=== PATIENT | female | born 1950 | race African-American/Black ===

== ENCOUNTER → 2016-07-30 | Outpatient (CLI) | payer MEDICARE, OTHER | LOC: RAD 11:33 | PROVIDERS: ATTEND Internal Medicine Gastroenterology | DX: K59.01 Slow transit constipation (principal); R14.0 Abdominal distension (gaseous) | CPT/HCPCS: 74000 ==

== ENCOUNTER → 2016-12-14 | Outpatient (CLI) | payer MEDICARE, OTHER ==
--- NOTE | 2016-12-14 14:51 | RADIOLOGY REPORT (SQ) ---
EXAM DESCRIPTION: CT ABD/PELVIS NO ORAL OR IV COMPLETED DATE/TIME: 12/14/2016 1:34 pm REASON FOR STUDY: LOWER ABD PAIN (R10.30) R10.30 LOWER ABDOMINAL PAIN, UNSPECIFIED COMPARISON: None. TECHNIQUE: CT scan of the abdomen and pelvis performed without intravenous or oral contrast. Images reviewed with lung, soft tissue, and bone windows. Reconstructed coronal and sagittal MPR images revi ewed. All images stored on PACS. All CT scanners at this facility use dose modulation, iterative reconstruction, and/or weight based d osing when appropriate to reduce radiation dose to as low as reasonably achievable (ALARA). [facility]: Dose Right [facility]: CareDose [facility]: Dose Right [facility]: Teradose 4D [facility]: [employer] RADIATION DOSE: Up-to-date CT equipment and radiation dose reduction techniques were employed. CTDIv ol: 15.7 mGy. DLP: 784 mGy-cm.mGy. LIMITATIONS: None. FINDINGS: LOWER CHEST: No significant findings. No nodules or infiltrates. NON-CONTRASTED LIVER, SPLEEN, ADRENALS: Evaluation limited by lack of IV contrast. No identified sign ificant masses. PANCREAS: No masses. No peripancreatic inflammatory changes. GALLBLADDER: No identified stones by CT criteria. No inflammatory changes to suggest cholecystitis. RIGHT KIDNEY AND URETER: No suspicious masses. Assessment limited by lack of IV contrast. No signif icant calcifications. No hydronephrosis or hydroureter. LEFT KIDNEY AND URETER: No suspicious masses. Assessment limited by lack of IV contrast. No signifi cant calcifications. No hydronephrosis or hydroureter. AORTA AND RETROPERITONEUM: No aneurysm. No retroperitoneal masses or adenopathy. BOWEL AND PERITONEAL CAVITY: No obvious masses or inflammatory changes. No free fluid. APPENDIX: Normal. PELVIS, BLADDER, AND ABDOMINAL WALL:The urinary bladder is normal. The uterus is normal for age. Th ere is no adnexal mass or fluid collection. A small umbilical hernia contains only fat. BONES: No osseous lesions are seen. Posterior rods are present from L3-L5 with screws through the pe dicles. OTHER: No other significant finding. IMPRESSION: 1. There is no acute abnormality in the abdomen or pelvis. COMMENT: Quality ID # [id number]: Final reports with documentation of one or more dose reduction techniques (e.g., Automated exposure control, adjustment of the mA and/or kV according to patient size, use of iterative reconstruction technique) TECHNICAL DOCUMENTATION: JOB ID: [id number] [employer]- All Rights Reserved
== END ==
LOC: RAD 12:45
PROVIDERS: ATTEND Internal Medicine
DX: R10.30 Lower abdominal pain, unspecified (principal)
CPT/HCPCS: 74176

== ENCOUNTER → 2018-03-27 | Outpatient (CLI) | payer MEDICARE, OTHER ==
--- NOTE | 2018-03-27 14:38 | RADIOLOGY REPORT (SQ) ---
EXAM DESCRIPTION: CHEST PA/LATERAL COMPLETED DATE/TIME: 03/27/2018 2:08 pm REASON FOR STUDY: COUGH COMPARISON: None. EXAM PARAMETERS: NUMBER OF VIEWS: two views TECHNIQUE: Digital Frontal and Lateral radiographic views of the chest acquired. RADIATION DOSE: NA LIMITATIONS: none FINDINGS: LUNGS AND PLEURA: No opacities, masses or pneumothorax. No pleural effusion. MEDIASTINUM AND HILAR STRUCTURES: No masses or contour abnormalities. HEART AND VASCULAR STRUCTURES: Heart normal size. No evidence for failure. BONES: No acute findings. HARDWARE: None in the chest. OTHER: No other significant finding. IMPRESSION: 1. NO SIGNIFICANT RADIOGRAPHIC FINDING IN THE CHEST. TECHNICAL DOCUMENTATION: JOB ID: [id number] [employer]- All Rights Reserved Reading location - IP/workstation name: [email or web address]
--- NOTE | 2018-03-27 15:22 | RADIOLOGY REPORT (SQ) ---
EXAM DESCRIPTION: PARANASAL SINUSES COMPLETED DATE/TIME: 03/27/2018 2:08 pm REASON FOR STUDY: COUGH R05 COUGH COMPARISON: None. NUMBER OF VIEWS: Three views. TECHNIQUE: Images of the paranasal sinuses acquired. LIMITATIONS: None. FINDINGS: ORBITS: No fracture. No foreign body. SINUSES: No mucosal thickening. No air fluid levels. FACIAL BONES: No fracture. OTHER: Degenerative disc disease C4-C5. IMPRESSION: 1. NO PLAIN RADIOGRAPHIC EVIDENCE FOR SINUS DISEASE. TECHNICAL DOCUMENTATION: JOB ID: [id number] [employer]- All Rights Reserved Reading location - IP/workstation name: [email or web address]
== END ==
LOC: OD 13:31
PROVIDERS: ATTEND Internal Medicine
DX: R05 Cough (principal)
CPT/HCPCS: 70220; 71046

== ENCOUNTER → 2018-04-10 | Outpatient (CLI) | payer MEDICARE, OTHER ==
[2018-04-10 14:34] LABS: ABSOLUTE EOSINOPHILS # (AUTO) 0.5 10^3/uL (0.0-0.6); ABSOLUTE LYMPHOCYTES (AUTO) 1.2 10^3/uL (0.5-4.7); ABSOLUTE MONOCYTES (AUTO) 0.3 10^3/uL (0.1-1.4); ABSOLUTE NEUT (AUTO) 0.9 10^3/uL (1.7-8.2); BASOPHILS % (AUTO) 1.4 % (0-2); HEMATOCRIT 37.1 % (36.0-47.0); HEMOGLOBIN 11.9 g/dL (12.0-15.5); MEAN CORPUSCULAR HEMOGLOBIN 21.3 pg (27.0-33.4); MEAN CORPUSCULAR HGB CONC 32.1 g/dL (32.0-36.0); MEAN CORPUSCULAR VOLUME 66 fl (80-97); MONOCYTES % (AUTO) 9.2 % (3-13); PLATELET COUNT 229 10^3/uL (150-450); RED BLOOD COUNT 5.58 10^6/uL (3.72-5.28); RED CELL DISTRIBUTION WIDTH 15.6 % (11.5-14.0); SEGMENTED NEUTROPHILS % (AUTO) 32.4 % (42-78); TOTAL CELLS COUNTED % (AUTO) 100 %; WHITE BLOOD COUNT 2.9 10^3/uL (4.0-10.5)
[2018-04-10 14:52] LABS: ALANINE AMINOTRANSFERASE 24 U/L (9-52); ALBUMIN 3.9 g/dL (3.5-5.0); ALKALINE PHOSPHATASE 130 U/L (38-126); ANION GAP 5 (5-19); ASPARTATE AMINO TRANSFERASE 26 U/L (14-36); BILIRUBIN,DIRECT 0.1 mg/dL (0.0-0.4); BILIRUBIN,TOTAL 0.5 mg/dL (0.2-1.3); BLOOD UREA NITROGEN 25 mg/dL (7-20); CALCIUM 9.3 mg/dL (8.4-10.2); CARBON DIOXIDE 32 mmol/L (22-30); CHLORIDE 104 mmol/L (98-107); GLUCOSE 99 mg/dL (75-110); LIPASE 62.5 U/L (23-300); POTASSIUM 4.8 mmol/L (3.6-5.0); SODIUM 140.6 mmol/L (137-145)
[2018-04-10 15:00] LABS: FREE T4 (FREE THYROXINE) 0.92 ng/dL (0.78-2.19)
[2018-04-10 15:15] LABS: THYROID STIMULATING HORMONE 0.48 uIU/mL (0.47-4.68)
== END ==
LOC: LAB 14:04
PROVIDERS: ATTEND Internal Medicine Gastroenterology
DX: R07.9 Chest pain, unspecified (principal); R10.816 Epigastric abdominal tenderness; R10.812 Left upper quadrant abdominal tenderness; K59.01 Slow transit constipation
CPT/HCPCS: 36415; 80048; 80076; 83690; 84439; 84443; 85025

== ENCOUNTER → 2018-10-30 | Outpatient (CLI) | payer MEDICARE, OTHER ==
[~2018-10-30] MED LIST: DIAZEPAM 5 MG TABLET ONE
--- NOTE | 2018-10-30 14:18 | RADIOLOGY REPORT (SQ) ---
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 TECHNIQUE: Multiplanar imaging includes non-contrasted T1, T2, FLAIR, and diffusion with ADC map seq uences. Images stored on PACS. LIMITATIONS: None. FINDINGS: ANATOMY: No anomalies. Normal vascular flow voids. Pituitary fossa normal. CSF SPACES: Normal in size and contour. No hemorrhage. CEREBRUM: Sulci and gyri normal in size and contour. Minimal age appropriate spotty increased bifron alexsander and biparietal white matter signal on FLAIR imaging from chronic small vessel ischemic change. N o evidence of hemorrhage, mass, or extraaxial fluid collection. POSTERIOR FOSSA: No signal alteration. No hemorrhage. No edema, masses or mass effect. Internal wayne tory canals, cerebello-pontine angles, mastoids normal. DIFFUSION IMAGING: Negative for acute or sub-acute infarction. ORBITS: No masses. Globes normal. PARANASAL SINUSES: No fluid levels. Mucosa normal. OTHER: No other significant finding. IMPRESSION: ESSENTIALLY NORMAL MRI OF THE BRAIN WITHOUT INTRAVENOUS GADOLINIUM CONTRAST. EVIDENCE OF ACUTE STROKE: NO. TECHNICAL DOCUMENTATION: JOB ID: [id number] [employer]- All Rights Reserved Reading location - IP/workstation name: [email or web address]
== END ==
LOC: RAD 10-28 12:53
PROVIDERS: ATTEND Internal Medicine
DX: G46.4 Cerebellar stroke syndrome (principal)
CPT/HCPCS: 70551; A9270

== ENCOUNTER → 2019-05-11 | Outpatient (CLI) | payer MEDICARE, OTHER ==
--- NOTE | 2019-05-11 13:54 | RADIOLOGY REPORT (SQ) ---
EXAM DESCRIPTION: HAND BILATERAL 2 VIEWS COMPLETED DATE/TIME: 05/11/2019 1:38 pm REASON FOR STUDY: POLYARTHRITIS, UNSPECIFIED M13.0 POLYARTHRITIS, UNSPECIFIED COMPARISON: None. EXAM PARAMETERS: NUMBER OF VIEWS: Two views right hand. Two views left hand. TECHNIQUE: AP and lateral radiographic images acquired of bilateral hands. LIMITATIONS: None. FINDINGS: RIGHT HAND: MINERALIZATION: Normal. BONES: No acute fracture or dislocation. No worrisome bone lesions. No significant osteophytes. JOINTS: Degenerative changes most marked in the radiocarpal joint and 1st carpal/metacarpal joint. T here are subchondral cysts and joint space narrowing. There is subchondral sclerosis. SOFT TISSUES: No swelling. No calcifications. OTHER: No other significant finding. LEFT HAND: MINERALIZATION: Normal. BONES: No acute fracture or dislocation. No worrisome bone lesions. No significant osteophytes. JOINTS: Degenerative changes most marked in the radiocarpal joint and 1st carpal/metacarpal joint. T here are subchondral cysts and joint space narrowing. There is sub chondral sclerosis. SOFT TISSUES: No swelling. No calcifications. OTHER: No other significant finding. IMPRESSION: Osteoarthritic changes most marked in the radiocarpal joint and 1st carpal/metacarpal aroldo int bilaterally. TECHNICAL DOCUMENTATION: JOB ID: [id number] [employer]- All Rights Reserved Reading location - IP/workstation name: [email or web address]
--- NOTE | 2019-05-11 13:55 | RADIOLOGY REPORT (SQ) ---
EXAM DESCRIPTION: SHOULDER RIGHT 2 OR MORE VIEWS COMPLETED DATE/TIME: 05/11/2019 1:38 pm REASON FOR STUDY: POLYARTHRITIS, UNSPECIFIED M13.0 POLYARTHRITIS, UNSPECIFIED COMPARISON: None. NUMBER OF VIEWS: Two views. TECHNIQUE: AP and Y-view images acquired of the right shoulder. LIMITATIONS: None. FINDINGS: MINERALIZATION: Normal. BONES: No acute fracture. No worrisome bone lesions. JOINTS: No dislocation. VISUALIZED LUNGS AND RIBS: No pneumothorax. No rib fracture. SOFT TISSUES: No radiopaque foreign body. OTHER: No other significant finding. IMPRESSION: NEGATIVE STUDY OF THE RIGHT SHOULDER. NO RADIOGRAPHIC EVIDENCE OF ACUTE INJURY. TECHNICAL DOCUMENTATION: JOB ID: [id number] [employer]- All Rights Reserved Reading location - IP/workstation name: [email or web address]
--- NOTE | 2019-05-11 13:55 | RADIOLOGY REPORT (SQ) ---
EXAM DESCRIPTION: C SP 3 VWS OR LESS COMPLETED DATE/TIME: 05/11/2019 1:38 pm REASON FOR STUDY: POLYARTHRITIS, UNSPECIFIED M13.0 POLYARTHRITIS, UNSPECIFIED COMPARISON: None. NUMBER OF VIEWS: Three views. TECHNIQUE: AP, lateral and odontoid radiographic images acquired of the cervical spine. LIMITATIONS: None. FINDINGS: MINERALIZATION: Normal. ALIGNMENT: There is anterolisthesis of C3 on C4. Retrolisthesis of C4 on C5. VERTEBRAE: Vertebral bodies of normal height. DISCS: Disc space narrowing at C4-5 and C5-C6 to a lesser extent at C6-C7. Small anterior osteophyte s at the same levels. HARDWARE: None in the spine. SOFT TISSUES: No masses or calcifications. Lung apices clear. OTHER: No other significant finding. IMPRESSION: Multilevel spondylosis most marked at C4-5, C5-C6 and C6-C7. TECHNICAL DOCUMENTATION: JOB ID: [id number] [employer]- All Rights Reserved Reading location - IP/workstation name: [email or web address]
--- NOTE | 2019-05-11 13:56 | RADIOLOGY REPORT (SQ) ---
EXAM DESCRIPTION: KNEE LEFT 2 VIEWS COMPLETED DATE/TIME: 05/11/2019 1:38 pm REASON FOR STUDY: POLYARTHRITIS, UNSPECIFIED M13.0 POLYARTHRITIS, UNSPECIFIED COMPARISON: None. NUMBER OF VIEWS: Two views. TECHNIQUE: AP and lateral radiographic images acquired of the left knee. LIMITATIONS: None. FINDINGS: MINERALIZATION: Normal. BONES: No acute fracture or dislocation. No worrisome bone lesions. JOINT: No effusion. Mild joint space narrowing in all compartments. SOFT TISSUES: No soft tissue swelling. No radio-opaque foreign body. OTHER: No other significant finding. IMPRESSION: Mild osteoarthritic changes with joint space narrowing in all compartments. TECHNICAL DOCUMENTATION: JOB ID: [id number] [employer]- All Rights Reserved Reading location - IP/workstation name: [email or web address]
--- NOTE | 2019-05-11 13:57 | RADIOLOGY REPORT (SQ) ---
EXAM DESCRIPTION: HIPS BILATERAL COMPLETED DATE/TIME: 05/11/2019 1:38 pm REASON FOR STUDY: POLYARTHRITIS, UNSPECIFIED M13.0 POLYARTHRITIS, UNSPECIFIED COMPARISON: None. NUMBER OF VIEWS: Two views TECHNIQUE: AP pelvis and additional frog-leg view of both hips. LIMITATIONS: None. FINDINGS: MINERALIZATION: Normal. HIPS: Symmetric mild joint space narrowing. PELVIS AND SACRUM: No acute fracture or dislocation. No worrisome bone lesions. PUBIS AND ISCHIUM: No acute fracture. LOWER LUMBAR SPINE: Postsurgical changes in the visualize lower lumbar spine. SOFT TISSUES: No findings. OTHER: No other significant finding. IMPRESSION: Mild symmetric joint space narrowing in both hips. TECHNICAL DOCUMENTATION: JOB ID: [id number] [employer]- All Rights Reserved Reading location - IP/workstation name: [email or web address]
== END ==
LOC: OD 13:15
PROVIDERS: ATTEND Internal Medicine
DX: M13.0 Polyarthritis, unspecified (principal)
CPT/HCPCS: 72040; 73522

== ENCOUNTER → 2019-08-28 | Outpatient (CLI) | payer MEDICARE, OTHER ==
--- NOTE | 2019-08-29 08:57 | RADIOLOGY REPORT (SQ) ---
EXAM DESCRIPTION: MRI THORACIC SPINE WITHOUT IMAGES COMPLETED DATE/TIME: 08/28/2019 5:10 pm REASON FOR STUDY: M54.13 RADICULOPATHY, CERVICOTHORACIC REGION M54.13 RADICULOPATHY, CERVICOTHORACI C REGION COMPARISON: MRI cervical spine same date TECHNIQUE: Sagittal and Axial imaging includes T1, T2, STIR and gradient echo sequences. LIMITATIONS: None. FINDINGS: LOCALIZER: No worrisome findings. ALIGNMENT: Normal. VERTEBRAE: Intact. BONE MARROW: Diffuse spondylotic change with mixed fatty and sclerotic vertebral body endplate change s throughout the thoracic spine HARDWARE: None in the spine. CORD: Normal in size and signal intensity. Conus is at the L1-2 level SOFT TISSUES: No soft tissue masses. THORACIC DISCS T1-T12: Mild central stenosis at T9-10 and T10-11 from broad diffuse posterior disc b ulging and facet and ligament hypertrophy. Moderate bilateral foraminal narrowing at these levels. OTHER: No other significant finding. IMPRESSION: No abnormal intrinsic thoracic spinal cord signal. Mild central canal and moderate bilateral foraminal narrowing at T9-10 T10-11. TECHNICAL DOCUMENTATION: JOB ID: [id number] 2010 [employer]- All Rights Reserved Reading location - IP/workstation name: [email or web address]
--- NOTE | 2019-08-29 09:48 | RADIOLOGY REPORT (SQ) ---
EXAM DESCRIPTION: MRI CERVICAL SPINE WITHOUT IMAGES COMPLETED DATE/TIME: 08/28/2019 5:10 pm REASON FOR STUDY: M54.13 RADICULOPATHY, CERVICOTHORACIC REGION M54.13 RADICULOPATHY, CERVICOTHORACI C REGION COMPARISON: Cervical spine two views 05/11/2019 MRI thoracic spine 08/28/2019 PET-CT Pending Sale To [facility] [id number] TECHNIQUE: Sagittal and Axial imaging includes T1, T2, STIR and gradient echo sequences. LIMITATIONS: None. FINDINGS: Abnormal increased intrinsic T2 signal is seen in the cervical spinal cord involving a 4 c m long segment craniocaudally, from the C2-3 disc level through the C5-6 level. This is best shown o n sagittal image 8 and axial T2 series 6, images 8 through 14. This could represent either spinal co rd edema or myelomalacia. It is difficult to discern if focal spinal cord atrophy is present at this level due to mild motion artifact. Recommend follow-up postcontrast MRI cervical spine, to include repeat precontrast axial and sagittal T2 images, additional sagittal and coronal and axial precontrast and postcontrast T1 weighted images of the spinal cord. Findings communicated to Dr. Marley, at 0830 hours 08/29/2019. ALIGNMENT: Normal. VERTEBRAE: Intact. BONE MARROW: Mixed fatty and sclerotic vertebral body endplate change at C4-5 DISCS: Ankylosis across a C7-T1 disc space. Multilevel disc space narrowing HARDWARE: None in the spine. SOFT TISSUES: No soft tissue masses. C1-C2: No significant spinal stenosis. C2-C3: No significant spinal stenosis or exit foraminal stenosis. C3-C4: Posterior disc bulging and bilateral facet hypertrophy is present. Borderline central canal n arrowing. Moderate right, high-grade left foraminal narrowing. C4-C5: Broad diffuse posterior disc bulge and facet hypertrophy is present. Mild central canal steno sis. High-grade bilateral foraminal narrowing. C5-C6: Broad diffuse posterior disc bulge and bony spurring is present without central or left forami nal narrowing. High-grade right foraminal stenosis from facet and uncovertebral hypertrophy C6-C7: Minimal posterior disc bulge, mild bilateral facet hypertrophy. No central or right foraminal narrowing. Mild left foraminal stenosis C7-T1: Broad diffuse posterior disc bulge and bony spurring with ankylosis across the disc space. No central stenosis. No significant foraminal narrowing UPPER THORACIC: Broad diffuse posterior disc bulge and bony spurring and T1-2 with mild central canal narrowing and high-grade right foraminal narrowing. No left foraminal narrowing OTHER: No other significant finding. IMPRESSION: Abnormal intrinsic signal in the cervical spinal cord from the C2-3 level through the C5 -6 level. Findings could either indicate myelomalacia or acute cord edema from trauma or tumor. Post-contrast follow-up MRI imaging of the cervical spine with particular attention to the spinal cor d is recommended. TECHNICAL DOCUMENTATION: JOB ID: [id number] 2010 [employer]- All Rights Reserved Reading location - IP/workstation name: [email or web address]
== END ==
LOC: RAD 08-24 15:05
PROVIDERS: ATTEND Internal Medicine
DX: M54.13 Radiculopathy, cervicothoracic region (principal)
CPT/HCPCS: 72141; 72146

== ENCOUNTER → 2019-08-31 | Outpatient (CLI) | payer MEDICARE, OTHER ==
--- NOTE | 2019-08-31 14:20 | RADIOLOGY REPORT (SQ) ---
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 CONTRAST TYPE AND DOSE: 15 mL Dotarem. RENAL FUNCTION: Not indicated. ACR Type II contrast agent associated with few, if any, unconfounded cases of NSF LIMITATIONS: Patient motion. FINDINGS: Very limited postcontrast T1 weighted images were submitted. No abnormal enhancement is a ppreciated. IMPRESSION: Limited postcontrast images of the cervical spine reveal no obvious abnormal enhancement . COMMENT: None. TECHNICAL DOCUMENTATION: JOB ID: [id number] 2010 [employer]- All Rights Reserved Reading location - IP/workstation name: [email or web address]
== END ==
LOC: RAD 10:55
PROVIDERS: ATTEND Internal Medicine
DX: D43.4 Neoplasm of uncertain behavior of spinal cord (principal)
CPT/HCPCS: 82565; 72142; A9576

== ENCOUNTER → 2019-12-07 | Outpatient (CLI) | payer MEDICARE, OTHER ==
--- NOTE | 2019-12-07 16:23 | RADIOLOGY REPORT (SQ) ---
EXAM DESCRIPTION: HAND BILATERAL 2 VIEWS IMAGES COMPLETED DATE/TIME: 12/07/2019 3:39 pm REASON FOR STUDY: POLYARTHRITIS, UNSPECIFIED M13.0 POLYARTHRITIS, UNSPECIFIED COMPARISON: None. EXAM PARAMETERS: NUMBER OF VIEWS: Two views right hand. Two views left hand. TECHNIQUE: AP and lateral radiographic images acquired of bilateral hands. LIMITATIONS: None. FINDINGS: RIGHT HAND: MINERALIZATION: Normal. BONES: No acute fracture or dislocation. No worrisome bone lesions. JOINTS: There are some mild erosions in the lunate and distal radius. SOFT TISSUES: No swelling. No calcifications. OTHER: No other significant finding. LEFT HAND: MINERALIZATION: Normal. BONES: No acute fracture or dislocation. No worrisome bone lesions. JOINTS: There are erosions in the lunate and in the distal radius. There is widening of the scapholu michelle interval. SOFT TISSUES: No swelling. No calcifications. OTHER: No other significant finding. IMPRESSION: There changes in each wrist as described. Cannot exclude disruption of the left scaphol unate ligaments. TECHNICAL DOCUMENTATION: JOB ID: [id number] 2010 [employer]- All Rights Reserved Reading location - IP/workstation name: [email or web address]
--- NOTE | 2019-12-07 16:29 | RADIOLOGY REPORT (SQ) ---
EXAM DESCRIPTION: SHOULDER BILAT 2 OR MORE VIEWS IMAGES COMPLETED DATE/TIME: 12/07/2019 3:39 pm REASON FOR STUDY: POLYARTHRITIS, UNSPECIFIED M13.0 POLYARTHRITIS, UNSPECIFIED COMPARISON: None. NUMBER OF VIEWS: Three views. TECHNIQUE: Internal rotation, external rotation, and Y view images acquired of the right and left sh oulder. LIMITATIONS: None. FINDINGS: MINERALIZATION: Normal. BONES: No acute fracture. No worrisome bone lesions. No significant osteophytes. GLENOHUMERAL JOINT: No significant findings. ACROMIOCLAVICULAR JOINT: No large osteophytes. SOFT TISSUES: No calcifications. VISUALIZED RIBS, SPINE, AND LUNG: No other significant finding. OTHER: No other significant finding. IMPRESSION: NEGATIVE STUDY OF THE RIGHT AND LEFT SHOULDERS. NO EXPLANATION FOR PAIN. TECHNICAL DOCUMENTATION: JOB ID: [id number] 2010 [employer]- All Rights Reserved Reading location - IP/workstation name: [email or web address]
--- NOTE | 2019-12-07 16:30 | RADIOLOGY REPORT (SQ) ---
EXAM DESCRIPTION: KNEE BILAT AP UPRIGHT IMAGES COMPLETED DATE/TIME: 12/07/2019 3:39 pm REASON FOR STUDY: POLYARTHRITIS, UNSPECIFIED M13.0 POLYARTHRITIS, UNSPECIFIED COMPARISON: None. NUMBER OF VIEWS: One view. TECHNIQUE: AP standing bilateral knees. LIMITATIONS: None. FINDINGS: An AP standing view of each knee shows the joint spaces to be normal. No marginal erosion s are present. There is normal mineralization. IMPRESSION: NEGATIVE STUDY OF THE STANDING RIGHT AND LEFT KNEES. NO SIGNIFICANT JOINT SPACE NARROWIN G OR OTHER SIGNS OF ARTHRITIS. TECHNICAL DOCUMENTATION: JOB ID: [id number] 2010 [employer]- All Rights Reserved Reading location - IP/workstation name: [email or web address]
== END ==
LOC: RAD 15:11
PROVIDERS: ATTEND Internal Medicine
DX: M13.0 Polyarthritis, unspecified (principal)
CPT/HCPCS: 73565